=== PATIENT | female | born 1955 | race Caucasian/White ===

== ENCOUNTER 2018-02-12 13:21 | Inpatient (IN) | payer MEDICAID, OTHER ==
[~2018-02-12] VITALS: Ht 177.8 cm; Wt 105.6 kg
[2018-02-12 14:12] LABS: Basophils # (auto) 0 uL; Basophils % (auto) 0.3 % (0.0-2.0); Eosinophils # (auto) 0.1 uL; Eosinophils % (auto) 0.4 % (0.0-7.0); Hematocrit 44.2 % (36.0-46.0); Hemoglobin 15.1 g/dL (12.2-16.2); Lymphocytes # (auto) 1.3 uL; Lymphocytes % (auto) 8.3 % (10.0-50.0); Mean Corpuscular Hemoglobin 32.9 pg (28.0-32.0); Mean Corpuscular Hgb Conc. 34.2 g/dL (32.0-36.0); Mean Corpuscular Volume 96.1 fL (80.0-100.0); Monocytes # (auto) 1.1 uL; Monocytes % (auto) 6.7 % (0.0-12.0); Neutrophils # (auto) 13.7 uL; Neutrophils % (auto) 84.3 % (37.0-80.0); Platelet Count (auto) 261 10^3/uL (140-450); Red Cell Distribution Width 13.3 % (11.8-14.3); White Blood Cell 16.3 10^3/uL (4.4-10.8)
[2018-02-12] MEDS ORDERED: SODIUM CHLORIDE 0.9% 1,000 ML IVB ONE (14:29)
[2018-02-12] MEDS ORDERED: MORPHINE SULFATE 4 MG/ML SYR/VIAL IV ONE (14:30)
[2018-02-12] MEDS ORDERED: ONDANSETRON HCL 4 MG/2 ML VIAL IV ONE (14:30)
[2018-02-12 14:47] LABS: Albumin 3.9 g/dL (3.4-5.0); Anion Gap 14 (5-15); Blood Urea Nitrogen 37 mg/dL (7-18); Calcium 10.3 mg/dL (8.5-10.1); Carbon Dioxide 15 mmol/L (21-32); Chloride 113 mmol/L (98-107); Sodium 142 mmol/L (136-145)
[2018-02-12 14:49] LABS: Alanine Aminotransferase 28 U/L (13-56); Aspartate Aminotransferase 16 U/L (15-37); BUN/Creatinine Ratio 21.4; GFR African American 38 mL/min; GFR Non-African American 32 mL/min; Glucose 182 mg/dL (74-106)
[2018-02-12 14:55] LABS: Alkaline Phosphatase 90 U/L (45-117); Bilirubin, Total 1.1 mg/dL (0.2-1.0); Total Protein 7.8 g/dL (6.4-8.2)
[2018-02-12 14:57] LABS: INR 0.93 (0.9-1.15); Partial Thromboplastin Time 24.1 sec (23.78-33.04)
[2018-02-12 15:25] LABS: Lactic Acid w/Reflex 2.4 mmol/L (0.4-2.0)
[2018-02-12] MEDS ORDERED: DEXTROSE (50%) 50ML SYRG IV PRN (15:45)
[2018-02-12] MEDS ORDERED: TAMSULOSIN HYDROCHLORIDE 0.4 MG CAP PO ONE (15:45)
[2018-02-12] MEDS: SODIUM CHLORIDE 0.9% 1,000 ML IV SCH ×2 (16:52→23:50)
[2018-02-12] MEDS: LEVOFLOXACIN 250MG 50 ML IV SCH (16:52)
[2018-02-12] MEDS: ONDANSETRON HCL 4 MG/2 ML VIAL IV PRN (18:06)
[2018-02-12] MEDS: ACCU-CHEK COMFORT CURVE STRIP VI SCH (18:23)
[2018-02-12] MEDS: InsuLIN REG 1unit/0.01ml Soln (100units/ml) SC SCH (18:23)
[2018-02-12] MEDS: MORPHINE SULFATE 4 MG/ML SYR/VIAL IV PRN (19:42)
[2018-02-12 21:45] VITALS: BP 156/83
[2018-02-12 22:00] VITALS: BP 156/83
[2018-02-12] MEDS: HYDROcodone-ACET 5/325MG TAB PO PRN (22:16)
[2018-02-13] MEDS: InsuLIN REG 1unit/0.01ml Soln (100units/ml) SC SCH ×5 (00:14→17:55)
[2018-02-13] MEDS: ACCU-CHEK COMFORT CURVE STRIP VI SCH ×5 (00:14→17:55)
[2018-02-13] MEDS ORDERED: GABA300C10 PO (01:53)
[2018-02-13] MEDS ORDERED: METF-370 PO (01:53)
[2018-02-13] MEDS: MORPHINE SULFATE 4 MG/ML SYR/VIAL IV PRN ×3 (03:09→20:13)
[2018-02-13 05:00] VITALS: BP 115/74
[2018-02-13 06:33] LABS: Basophils # (auto) 0 uL; Basophils % (auto) 0.2 % (0.0-2.0); Eosinophils # (auto) 0 uL; Hematocrit 39.3 % (36.0-46.0); Hemoglobin 13.2 g/dL (12.2-16.2); Lymphocytes # (auto) 0.9 uL; Lymphocytes % (auto) 4.3 % (10.0-50.0); Mean Corpuscular Hemoglobin 33.2 pg (28.0-32.0); Mean Corpuscular Hgb Conc. 33.7 g/dL (32.0-36.0); Mean Corpuscular Volume 98.6 fL (80.0-100.0); Monocytes # (auto) 1.2 uL; Monocytes % (auto) 5.8 % (0.0-12.0); Neutrophils # (auto) 18.1 uL; Neutrophils % (auto) 89.7 % (37.0-80.0); Nucleated Red Blood Cells % 0.1 %; Platelet Count (auto) 184 10^3/uL (140-450); Red Blood Cells 3.98 10^6/uL (4.0-5.20); White Blood Cell 20.2 10^3/uL (4.4-10.8)
[2018-02-13 06:46] LABS: BUN/Creatinine Ratio 13.4; Calcium 8.7 mg/dL (8.5-10.1); Potassium 4.6 mmol/L (3.5-5.1)
[2018-02-13] MEDS: HYDROcodone-ACET 5/325MG TAB PO PRN ×3 (07:55→22:42)
[2018-02-13] MEDS: SODIUM CHLORIDE 0.9% 1,000 ML IV SCH ×3 (07:59→20:13)
[2018-02-13 09:00] VITALS: BP 147/68
[2018-02-13] MEDS: LEVOFLOXACIN 250MG 50 ML IV SCH (09:59)
[2018-02-13] MEDS ORDERED: GABAPENTIN 300 MG CAP PO SCH (10:00)
[2018-02-13] MEDS ORDERED: fentaNYL CITRATE 100 MCG/2 ML VL ONE (11:09)
[2018-02-13] MEDS ORDERED: MIDAZOLAM HCL 1MG/1ML-2 ML VIAL ONE (11:09)
[2018-02-13 13:24] LABS: Urine Amorphous Crystal FEW /hpf (None Seen); Urine Bacteria MOD /hpf (None Seen); Urine Blood 3+ /uL (Negative); Urine Mucus FEW (None Seen); Urine Specific Gravity 1.015 (1.001-1.035); Urine WBC 488 /hpf (0 - 5); Urine WBC Clumps PRESENT /hpf (None Seen)
[2018-02-13] MEDS: ONDANSETRON HCL 4 MG/2 ML VIAL IV PRN (13:31)
[2018-02-13 16:49] VITALS: BP 155/74
[2018-02-13] MEDS: TAMSULOSIN HYDROCHLORIDE 0.4 MG CAP PO SCH (17:55)
[2018-02-13] MEDS: GABAPENTIN 300 MG CAP PO SCH (20:12)
[2018-02-13 22:20] VITALS: BP 159/79
[2018-02-14] MEDS: ACCU-CHEK COMFORT CURVE STRIP VI SCH ×5 (00:44→23:49)
[2018-02-14] MEDS: InsuLIN REG 1unit/0.01ml Soln (100units/ml) SC SCH ×5 (00:45→23:49)
[2018-02-14] MEDS: MORPHINE SULFATE 4 MG/ML SYR/VIAL IV PRN ×3 (02:45→23:50)
[2018-02-14 05:34] VITALS: BP 109/58
[2018-02-14 06:54] LABS: Basophils # (auto) 0 uL; Basophils % (auto) 0.2 % (0.0-2.0); Eosinophils # (auto) 0.1 uL; Eosinophils % (auto) 0.6 % (0.0-7.0); Hematocrit 40.2 % (36.0-46.0); Hemoglobin 13.3 g/dL (12.2-16.2); Lymphocytes # (auto) 0.7 uL; Lymphocytes % (auto) 6.6 % (10.0-50.0); Mean Corpuscular Hemoglobin 32.3 pg (28.0-32.0); Mean Corpuscular Hgb Conc. 32.9 g/dL (32.0-36.0); Mean Corpuscular Volume 98.1 fL (80.0-100.0); Monocytes # (auto) 0.5 uL; Monocytes % (auto) 4.8 % (0.0-12.0); Neutrophils % (auto) 87.8 % (37.0-80.0); Platelet Count (auto) 164 10^3/uL (140-450); Red Cell Distribution Width 13.7 % (11.8-14.3); White Blood Cell 10.3 10^3/uL (4.4-10.8)
[2018-02-14] MEDS: SODIUM CHLORIDE 0.9% 1,000 ML IV SCH (07:03)
[2018-02-14 07:15] LABS: BUN/Creatinine Ratio 11.4; Calcium 8.5 mg/dL (8.5-10.1); Potassium 5.1 mmol/L (3.5-5.1)
[2018-02-14] MEDS: HYDROcodone-ACET 5/325MG TAB PO PRN ×3 (07:28→21:38)
[2018-02-14 09:00] VITALS: BP 129/65
[2018-02-14] MEDS: LEVOFLOXACIN 250MG 50 ML IV SCH (10:01)
[2018-02-14] MEDS ORDERED: IOHEXOL 300 MG/ML 100ML BOTTLE IJ ONE (12:22)
[2018-02-14 13:00] VITALS: BP 140/73
[2018-02-14] MEDS ORDERED: cefTRIAXone 1GM/10ml IVPUSH 10 ML IV ONE ×2 (13:00→15:15)
[2018-02-14] MEDS ORDERED: LIDOCAINE 1% HCL (LOCAL ANESTH.) INJ 20ML MDV ONE (13:10)
[2018-02-14] MEDS ORDERED: LIDOCAINE 2% (LOCAL ANESTH.) PF 5ml SDV ONE (13:11)
[2018-02-14] MEDS: SODIUM BICARBONATE 50ML VIAL 50 ML in SOD CHL 0.45% 1,000 ML IV SCH ×2 (14:46→23:22)
[2018-02-14 15:22] LABS: Protein, Urine 38.8 mg/dL (0.0-11.9)
[2018-02-14 15:31] LABS: Urine Bacteria FEW /hpf (None Seen); Urine Blood 2+ /uL (Negative); Urine Specific Gravity 1.016 (1.001-1.035); Urine WBC 144 /hpf (0 - 5); Urine WBC Clumps PRESENT /hpf (None Seen)
[2018-02-14 16:39] VITALS: BP 148/72
[2018-02-14] MEDS: TAMSULOSIN HYDROCHLORIDE 0.4 MG CAP PO SCH (17:38)
[2018-02-14] MEDS: GABAPENTIN 300 MG CAP PO SCH (19:37)
[2018-02-14 21:56] VITALS: BP 165/91
[2018-02-15] MEDS: MORPHINE SULFATE 4 MG/ML SYR/VIAL IV PRN ×3 (04:18→20:37)
[2018-02-15 05:30] VITALS: BP 155/83
[2018-02-15] MEDS: InsuLIN REG 1unit/0.01ml Soln (100units/ml) SC SCH ×3 (06:00→18:00)
[2018-02-15] MEDS: ACCU-CHEK COMFORT CURVE STRIP VI SCH ×3 (06:08→18:00)
[2018-02-15] MEDS: SODIUM BICARBONATE 50ML VIAL 50 ML in SOD CHL 0.45% 1,000 ML IV SCH ×2 (06:21→16:10)
[2018-02-15 06:50] LABS: Basophils # (auto) 0 uL; Basophils % (auto) 0.2 % (0.0-2.0); Eosinophils # (auto) 0.1 uL; Eosinophils % (auto) 0.9 % (0.0-7.0); Hematocrit 36.8 % (36.0-46.0); Hemoglobin 12.3 g/dL (12.2-16.2); Lymphocytes # (auto) 0.5 uL; Lymphocytes % (auto) 5.1 % (10.0-50.0); Mean Corpuscular Hemoglobin 32.5 pg (28.0-32.0); Mean Corpuscular Hgb Conc. 33.5 g/dL (32.0-36.0); Mean Corpuscular Volume 97.2 fL (80.0-100.0); Monocytes # (auto) 0.6 uL; Monocytes % (auto) 6.1 % (0.0-12.0); Neutrophils # (auto) 8.5 uL; Neutrophils % (auto) 87.7 % (37.0-80.0); Platelet Count (auto) 155 10^3/uL (140-450); Red Blood Cells 3.79 10^6/uL (4.0-5.20); Red Cell Distribution Width 13.8 % (11.8-14.3); White Blood Cell 9.7 10^3/uL (4.4-10.8)
[2018-02-15 07:00] LABS: Albumin 2.1 g/dL (3.4-5.0); Calcium 8.4 mg/dL (8.5-10.1); Potassium 4.6 mmol/L (3.5-5.1)
[2018-02-15 07:02] LABS: BUN/Creatinine Ratio 15.5
[2018-02-15 08:00] VITALS: BP 153/88
[2018-02-15] MEDS ORDERED: cefTRIAXone 1GM/10ml IVPUSH 10 ML IV SCH (09:00)
[2018-02-15] MEDS: cefTRIAXone 1GM/10ml IVPUSH 10 ML IV SCH (09:00)
[2018-02-15] MEDS ORDERED: IODIXANOL 320MG/ML 100ML BTL IV ONE (09:28)
[2018-02-15] MEDS ORDERED: LIDOCAINE 2%HCL (LOCAL ANESTH.) INJ 10ml MDV ONE (09:28)
[2018-02-15] MEDS ORDERED: MIDAZOLAM HCL 1MG/1ML-2 ML VIAL ONE (09:40)
[2018-02-15] MEDS ORDERED: fentaNYL CITRATE 100 MCG/2 ML VL ONE (09:40)
[2018-02-15 12:00] VITALS: BP 146/76
[2018-02-15] MEDS: HYDROcodone-ACET 5/325MG TAB PO PRN (12:26)
[2018-02-15 16:30] VITALS: BP 122/73
[2018-02-15] MEDS: TAMSULOSIN HYDROCHLORIDE 0.4 MG CAP PO SCH (18:00)
[2018-02-15] MEDS: GABAPENTIN 300 MG CAP PO SCH (20:38)
[2018-02-15 21:29] VITALS: BP 138/78
[2018-02-16] MEDS: SODIUM BICARBONATE 50ML VIAL 50 ML in SOD CHL 0.45% 1,000 ML IV SCH ×3 (00:42→16:24)
[2018-02-16] MEDS: ACCU-CHEK COMFORT CURVE STRIP VI SCH ×5 (00:42→23:32)
[2018-02-16] MEDS: HYDROcodone-ACET 5/325MG TAB PO PRN ×3 (00:43→23:31)
[2018-02-16] MEDS: MORPHINE SULFATE 4 MG/ML SYR/VIAL IV PRN ×3 (02:51→18:41)
[2018-02-16 05:21] VITALS: BP 118/74
[2018-02-16 05:53] LABS: Basophils # (auto) 0 uL; Basophils % (auto) 0.3 % (0.0-2.0); Eosinophils # (auto) 0.2 uL; Eosinophils % (auto) 3.1 % (0.0-7.0); Hematocrit 34.2 % (36.0-46.0); Hemoglobin 11.9 g/dL (12.2-16.2); Lymphocytes # (auto) 0.9 uL; Lymphocytes % (auto) 11.9 % (10.0-50.0); Mean Corpuscular Hemoglobin 33.9 pg (28.0-32.0); Mean Corpuscular Hgb Conc. 34.9 g/dL (32.0-36.0); Monocytes # (auto) 0.6 uL; Monocytes % (auto) 8.6 % (0.0-12.0); Neutrophils # (auto) 5.7 uL; Neutrophils % (auto) 76.1 % (37.0-80.0); Platelet Count (auto) 159 10^3/uL (140-450); Red Blood Cells 3.52 10^6/uL (4.0-5.20); Red Cell Distribution Width 13.4 % (11.8-14.3); White Blood Cell 7.5 10^3/uL (4.4-10.8)
[2018-02-16] MEDS: InsuLIN REG 1unit/0.01ml Soln (100units/ml) SC SCH ×5 (06:00→23:32)
[2018-02-16 06:05] LABS: BUN/Creatinine Ratio 23.3; Calcium 8.8 mg/dL (8.5-10.1); Potassium 4.5 mmol/L (3.5-5.1)
[2018-02-16 09:00] VITALS: BP 147/66
[2018-02-16] MEDS: cefTRIAXone 1GM/10ml IVPUSH 10 ML IV SCH (09:38)
[2018-02-16 13:00] VITALS: BP 154/75
[2018-02-16 17:01] VITALS: BP 156/70
[2018-02-16] MEDS: TAMSULOSIN HYDROCHLORIDE 0.4 MG CAP PO SCH (18:26)
[2018-02-16] MEDS: GABAPENTIN 300 MG CAP PO SCH (21:04)
[2018-02-16 22:00] VITALS: BP 148/82
[2018-02-17] MEDS: SODIUM BICARBONATE 50ML VIAL 50 ML in SOD CHL 0.45% 1,000 ML IV SCH ×3 (02:28→17:36)
[2018-02-17 04:53] LABS: Calcium 8.2 mg/dL (8.5-10.1); Potassium 3.5 mmol/L (3.5-5.1)
[2018-02-17 04:56] LABS: BUN/Creatinine Ratio 26.4
[2018-02-17] MEDS: ACCU-CHEK COMFORT CURVE STRIP VI SCH ×3 (05:29→17:40)
[2018-02-17] MEDS: InsuLIN REG 1unit/0.01ml Soln (100units/ml) SC SCH ×3 (05:29→17:40)
[2018-02-17] MEDS: MORPHINE SULFATE 4 MG/ML SYR/VIAL IV PRN ×2 (05:30→17:01)
[2018-02-17 05:31] VITALS: BP 151/78
[2018-02-17 08:00] VITALS: BP 150/76
[2018-02-17] MEDS: HYDROcodone-ACET 5/325MG TAB PO PRN ×2 (09:42→21:32)
[2018-02-17] MEDS: cefTRIAXone 1GM/10ml IVPUSH 10 ML IV SCH (09:43)
[2018-02-17 12:27] VITALS: BP 147/72
[2018-02-17 16:54] VITALS: BP 159/82
[2018-02-17] MEDS: TAMSULOSIN HYDROCHLORIDE 0.4 MG CAP PO SCH (17:39)
[2018-02-17] MEDS: GABAPENTIN 300 MG CAP PO SCH (20:16)
[2018-02-17 22:00] VITALS: BP 168/86
[2018-02-18] MEDS: ACCU-CHEK COMFORT CURVE STRIP VI SCH ×5 (00:01→23:36)
[2018-02-18] MEDS: SODIUM BICARBONATE 50ML VIAL 50 ML in SOD CHL 0.45% 1,000 ML IV SCH ×4 (02:10→22:58)
[2018-02-18 05:00] VITALS: BP 155/77
[2018-02-18] MEDS: InsuLIN REG 1unit/0.01ml Soln (100units/ml) SC SCH ×5 (05:35→23:35)
[2018-02-18] MEDS: HYDROcodone-ACET 5/325MG TAB PO PRN ×3 (05:41→18:30)
[2018-02-18 09:00] VITALS: BP 155/79
[2018-02-18] MEDS: cefTRIAXone 1GM/10ml IVPUSH 10 ML IV SCH (10:03)
[2018-02-18 13:00] VITALS: BP 128/79
[2018-02-18 17:00] VITALS: BP 164/84
[2018-02-18] MEDS: TAMSULOSIN HYDROCHLORIDE 0.4 MG CAP PO SCH (18:30)
[2018-02-18] MEDS: cloNIDine HCL 0.1 MG TAB PO PRN (18:31)
[2018-02-18] MEDS: GABAPENTIN 300 MG CAP PO SCH (20:10)
[2018-02-18 22:00] VITALS: BP 155/84
[2018-02-18] MEDS: MORPHINE SULFATE 4 MG/ML SYR/VIAL IV PRN (23:05)
[2018-02-19] VITALS (7 sets, daily range): BP systolic 141–163; BP diastolic 69–86
[2018-02-19] MEDS: InsuLIN REG 1unit/0.01ml Soln (100units/ml) SC SCH ×4 (05:10→23:19)
[2018-02-19] MEDS: ACCU-CHEK COMFORT CURVE STRIP VI SCH ×4 (05:11→23:19)
[2018-02-19 06:01] LABS: Hemoglobin 11.9 g/dL (12.2-16.2); Mean Corpuscular Hemoglobin 32.8 pg (28.0-32.0); Mean Corpuscular Hgb Conc. 34.1 g/dL (32.0-36.0); Mean Corpuscular Volume 96.4 fL (80.0-100.0); Platelet Count (auto) 229 10^3/uL (140-450); Red Blood Cells 3.63 10^6/uL (4.0-5.20); Red Cell Distribution Width 13.4 % (11.8-14.3); White Blood Cell 9.6 10^3/uL (4.4-10.8)
[2018-02-19 06:13] LABS: Basophils % (manual) 0 (0.0-2.0); Blast Cells 0; Metamyelocytes % 0; Myelocytes % 0; Promyelocytes % 0; Reactive Lymphocytes 0
[2018-02-19 06:24] LABS: Calcium 8.7 mg/dL (8.5-10.1); Potassium 3.6 mmol/L (3.5-5.1)
[2018-02-19 06:27] LABS: BUN/Creatinine Ratio 17.1
[2018-02-19 06:50] LABS: Band Neutrophils % (manual) 3; Eosinophils % (manual) 5 (0-7); Lymphocytes % (manual) 21 (10.0-50.0); Monocytes % (manual) 6 (0-12)
[2018-02-19] MEDS ORDERED: ADENOSINE 90 MG in GIVE UN-DILUTED 0 ML IV STA (08:58)
[2018-02-19] MEDS: cefTRIAXone 1GM/10ml IVPUSH 10 ML IV SCH (09:48)
[2018-02-19] MEDS: SODIUM BICARBONATE 50ML VIAL 50 ML in SOD CHL 0.45% 1,000 ML IV SCH ×2 (09:48→20:00)
[2018-02-19] MEDS ORDERED: diphenhdrAMINE HCL 25 MG CAP PO ONE (14:30)
[2018-02-19] MEDS: HYDROcodone-ACET 5/325MG TAB PO PRN (17:50)
[2018-02-19] MEDS: TAMSULOSIN HYDROCHLORIDE 0.4 MG CAP PO SCH (17:50)
[2018-02-19] MEDS: GABAPENTIN 300 MG CAP PO SCH (21:02)
[2018-02-19] MEDS: MORPHINE SULFATE 4 MG/ML SYR/VIAL IV PRN (22:49)
[2018-02-20] MEDS: HYDROcodone-ACET 5/325MG TAB PO PRN ×2 (04:51→11:32)
[2018-02-20] MEDS: SODIUM BICARBONATE 50ML VIAL 50 ML in SOD CHL 0.45% 1,000 ML IV SCH ×2 (04:51→12:48)
[2018-02-20 04:59] VITALS: BP 166/86
[2018-02-20] MEDS: ACCU-CHEK COMFORT CURVE STRIP VI SCH ×3 (05:40→18:00)
[2018-02-20] MEDS: cloNIDine HCL 0.1 MG TAB PO PRN (05:40)
[2018-02-20] MEDS: InsuLIN REG 1unit/0.01ml Soln (100units/ml) SC SCH ×3 (05:56→18:00)
[2018-02-20 09:00] VITALS: BP 137/73
[2018-02-20] MEDS: cefTRIAXone 1GM/10ml IVPUSH 10 ML IV SCH (10:16)
[2018-02-20 13:00] VITALS: BP 157/78
[2018-02-20] MEDS ORDERED: LISINOPRIL 10 MG TAB PO ONE (15:45)
[2018-02-20 16:47] VITALS: BP 149/81
[2018-02-20 18:23] VITALS: BP 143/73
[2018-02-20] MEDS: TAMSULOSIN HYDROCHLORIDE 0.4 MG CAP PO SCH (18:34)
== END 2018-02-20 20:45 | disposition home or self-care (01) | DRG 710 ==
LOC: ER 13:25 → OVERFLOW 13:26 → WEST WING 21:34
PROVIDERS: ADMIT Internal Medicine; ATTEND Internal Medicine
PROC: 0T9330Z Drainage of Right Kidney Pelvis with Drainage Device, Percutaneous Approach (ICD-10-PCS; principal; 2018-02-13)
PROC: BT111ZZ Fluoroscopy of Right Kidney using Low Osmolar Contrast (ICD-10-PCS; 2018-02-15)
PROC: 0TP5X0Z Removal of Drainage Device from Kidney, External Approach (ICD-10-PCS; 2018-02-15)
DX: A41.9 Sepsis, unspecified organism (principal); N15.1 Renal and perinephric abscess; N17.9 Acute kidney failure, unspecified; I11.9 Hypertensive heart disease without heart failure; N13.2 Hydronephrosis with renal and ureteral calculous obstruction; R65.10 Systemic inflammatory response syndrome (SIRS) of non-infectious origin without acute organ dysfunction; E11.9 Type 2 diabetes mellitus without complications; N39.0 Urinary tract infection, site not specified; G89.29 Other chronic pain; N10 Acute pyelonephritis; E83.52 Hypercalcemia; B96.4 Proteus (mirabilis) (morganii) as the cause of diseases classified elsewhere; E66.9 Obesity, unspecified; K76.0 Fatty (change of) liver, not elsewhere classified; Z82.49 Family history of ischemic heart disease and other diseases of the circulatory system; Z85.3 Personal history of malignant neoplasm of breast; Z85.528 Personal history of other malignant neoplasm of kidney; Z90.5 Acquired absence of kidney; Z90.710 Acquired absence of both cervix and uterus; Z90.49 Acquired absence of other specified parts of digestive tract; Z79.4 Long term (current) use of insulin; Z79.899 Other long term (current) drug therapy; Z68.33 Body mass index [BMI] 33.0-33.9, adult
CPT/HCPCS: 10022; 36415; 71045; 74018; 74150; 74176; 74425; 76000; 76775; 77012; 78452; 80048; 80053; 81001; 82570; 82962; 83036; 83605; 83735; 83970; 84156; 84300; 84484; 85007; 85025; 85027; 85610; 85730; 87040; 87077; 87086; 87186; 93005; 93017; 94761; 96372; 96374; 96375; 96376; A6257; C1729; J0153; J0696; J1815; J2001; J2250; J2405; Q9967

== ENCOUNTER 2020-11-18 18:44 | Emergency (ER) | payer MEDICARE, BC ==
[~2020-11-18] VITALS: Ht 177.8 cm; Wt 95.7 kg
[~2020-11-18 18:44] MED LIST: GABA300C10 PO; METF-370 PO
[2020-11-18] MEDS ORDERED: LORazepam 2MG/ML-1ML VIAL IV ONE (21:00)
[2020-11-18 23:54] LABS: Basophils # (auto) 0.1 10 ^3/uL (0-0.2); Basophils % (auto) 0.8 % (0.0-2.0); Eosinophils # (auto) 0.3 10 ^3/uL (0-0.8); Eosinophils % (auto) 3.3 % (0.0-7.0); Hematocrit 36.8 % (36.0-46.0); Hemoglobin 12.3 g/dL (12.2-16.2); Lymphocytes # (auto) 2.5 10 ^3/uL (0.4-5.4); Lymphocytes % (auto) 24.8 % (10.0-50.0); Mean Corpuscular Hemoglobin 32.5 pg (28.0-32.0); Mean Corpuscular Hgb Conc. 33.5 g/dL (32.0-36.0); Monocytes # (auto) 0.6 10 ^3/uL (0-1.3); Monocytes % (auto) 6.5 % (0.0-12.0); Neutrophils # (auto) 6.4 10 ^3/uL (1.6-8.6); Neutrophils % (auto) 64.6 % (37.0-80.0); Red Cell Distribution Width 14.5 % (11.8-14.3); White Blood Cell 9.9 10^3/uL (4.4-10.8)
[2020-11-19 00:18] LABS: BUN/Creatinine Ratio 22.8; Calcium 9.4 mg/dL (8.5-10.1); Potassium 4.1 mmol/L (3.5-5.1)
[2020-11-19 01:39] LABS: Urine Bacteria MOD /hpf (None Seen); Urine Blood Negative /uL (Negative); Urine Mucus FEW (None Seen); Urine Specific Gravity 1.011 (1.001-1.035); Urine WBC 19 /hpf (0 - 5)
[2020-11-19] MEDS ORDERED: LORazepam 2MG/ML-1ML VIAL IV ONE (04:30)
[2020-11-19] MEDS ORDERED: cefTRIAXone 1GM/50ML D5W 50 ML IV ONE (04:30)
[2020-11-19 05:31] VITALS: BP 134/73
== END 2020-11-19 05:36 | disposition home or self-care (01) ==
LOC: EDBD 18:44 → ER 18:44
DX: N39.0 Urinary tract infection, site not specified (principal); R25.9 Unspecified abnormal involuntary movements; E11.9 Type 2 diabetes mellitus without complications; Z90.49 Acquired absence of other specified parts of digestive tract; Z90.710 Acquired absence of both cervix and uterus
CPT/HCPCS: 36415; 80048; 81001; 82550; 83605; 85025; 87086; 87088; 87186; 96365; 96375; 96376; 99285; J0696; J2060